=== PATIENT | male | born 1985 | race Caucasian/White ===

== ENCOUNTER 2016-05-24 19:22 | Emergency (ER) | payer MEDICAID | END 2016-05-24 22:06 | disposition home or self-care (01) | LOC: D.ER 19:22 | DX: M62.838 Other muscle spasm (principal) ==

== ENCOUNTER 2017-09-18 13:30 | Emergency (ER) | payer MEDICAID ==
[2017-09-18 13:50] LABS: APPEARANCE CLEAR (CLEAR); BILIRUBIN NEGATIVE (NEGATIVE); COLOR YELLOW (YELLOW); GLUCOSE NEGATIVE (NEGATIVE); KETONE NEGATIVE (NEGATIVE); NITRITE NEGATIVE (NEGATIVE); PROTEIN NEGATIVE (NEGATIVE); UROBILINOGEN NORMAL (NORMAL)
[2017-09-18 14:20] LABS: BASOPHILS 0.1 % (0-2); EOSINOPHILS 1.5 % (0-7); HEMATOCRIT 41.5 % (42.0-54.0); HEMOGLOBIN 14.9 g/dL (13.5-17.5); IMMATURE GRANULOCYTES 0.3 % (0-5); LYMPHOCYTES 24.7 % (15-50); MCH 29.9 pg (26.0-34.0); MCHC 35.9 g/dL (31.0-37.0); MCV 83.3 fL (80.0-100.0); MEAN PLATELET VOLUME 9.7 fL (7.4-10.4); MONOCYTES 8.5 % (2-11); NEUTROPHILS 64.9 % (40-80); PLATELET COUNT 223 10x3/uL (130-400); RBC 4.98 10x6/uL (4.20-6.10); WBC 7.9 10x3/uL (4.8-10.8)
[2017-09-18 14:38] LABS: ALBUMIN 3.8 g/dL (3.4-5.0); ALKALINE PHOSPHATASE 49 U/L (46-116); ALT (SGPT) 75 U/L (10-68); AMYLASE - SERUM 28 U/L (25-115); BILIRUBIN - TOTAL 0.49 mg/dL (0.2-1.3); CALC OSMOLALITY 277 mosm/kg (275-300); CALCIUM 9.1 mg/dL (8.5-10.1); CARBON DIOXIDE 28.1 mmol/L (21.0-32.0); CHLORIDE - SERUM 105 mmol/L (98-107); CREATININE - SERUM 0.9 mg/dL (0.6-1.3); GLUCOSE 96 mg/dL (74-106); LIPASE 127 U/L (73-393); POTASSIUM - SERUM 3.5 mmol/L (3.5-5.1); PROTEIN - SERUM 7.9 g/dL (6.4-8.2); SODIUM 140 mmol/L (136-145); UREA NITROGEN 9 mg/dL (7-18); eGFR NON AFRICAN AMERICAN > 90 mL/min (90-120)
== END 2017-09-18 17:08 | disposition home or self-care (01) ==
LOC: D.ER 13:30
PROVIDERS: Emergency Medicine
DX: R10.9 Unspecified abdominal pain (principal)